=== PATIENT | male | born 2000 | race Caucasian/White ===

== ENCOUNTER 2018-07-18 18:07 | Emergency (ER) | payer OTHER ==
[~2018-07-18] VITALS: Ht 177.8 cm; Wt 68.9 kg
[~2018-07-18 18:07] MED LIST: ACETAMINOPHEN-1 EAC1 ORAL; AUGMENTIN 875-1 EAC1 ORAL; BACITRACIN-P28.35 GM TP
[2018-07-18 18:26] VITALS: BP 124/75
--- NOTE | 2018-07-18 18:28 | Emergency Room Report ---
History of Present Illness General Chief Complaint: Wound Recheck/Suture Removal Source: Patient Present Illness HPI Patient just for follow-up of laceration repair of the lower lip Patient reports that he was noticing some yellowish scab in the mornings when he woke up Pain is much improved denies any fevers denies any other discharge Patient does also have follow-up with facial specialist Injury occurred a few days ago secondary to dog bite Allergies: Coded Allergies: No Known Allergies (Unverified , 07/16/18) Patient History Past Medical History: see triage record Pertinent Family History: none Reviewed Nursing Documentation: PMH: Agreed; PSxH: Agreed Nursing Documentation-PMH Past Medical History: No Stated History Review of Systems All Other Systems: negative except mentioned in HPI Physical Exam Vital Signs Date Time Temp Pulse Resp B/P (MAP) Pulse Ox O2 Delivery O2 Flow Rate FiO2 07/18/18 18:15 98.2 83 16 124/75 98 Room Air Sp02 EP Interpretation: reviewed, normal General Appearance: well appearing, no apparent distress Head: normocephalic, atraumatic Eyes: bilateral eye PERRL, bilateral eye EOMI ENT: normal pharynx Neck: supple Musculoskeletal: normal inspection Neurologic: alert, oriented x3, responsive Skin: other - Suture repair in the left lower lip appears to be healing appropriately, patient is recommended highly to follow up with plastic specialty. However no sign of fluctuance or dehiscence Medical Decision Making Diagnostic Impression: Primary Impression: Encounter for wound re-check ER Course Laceration healing appropriately Patient is encouraged to follow-up with plastics as well Last Vital Signs Date Time Temp Pulse Resp B/P (MAP) Pulse Ox O2 Delivery O2 Flow Rate FiO2 07/18/18 18:15 98.2 83 16 124/75 98 Room Air Status: unchanged Disposition: HOME, SELF-CARE Condition: Stable Patient Instructions: Wound Check Additional Instructions: Patient is provided with the discharge instructions notified to follow up with primary doctor in the next 2-3 days otherwise return to the er with any worsening symptoms. Please note that this report is being documented using [employer] 3D technology. This can lead to erroneous entry secondary to incorrect interpretation by the dictating instrument. Telma Martinez DO Jul 18, 2018 18:28
== END 2018-07-18 18:30 | disposition home or self-care (01) ==
LOC: EMR 18:15
DX: Z48.02 Encounter for removal of sutures (principal)
CPT/HCPCS: 99282